=== PATIENT | male | born 1990 | race Caucasian/White ===

== ENCOUNTER → 2016-12-13 | Outpatient (CLI) | payer OTHER ==
--- NOTE | 2016-12-13 14:31 | US ---
EXAM DESCRIPTION: Soft Tissue,Head/Neck CLINICAL HISTORY: 26 years, Male, [employer] COMPARISON: None. FINDINGS: Two areas of palpable concern are noted by the patient on the right side of the neck posteriorly. There are two similar-appearing subcutaneous areas of circumscribed uniform fatty echogenicity consistent with lipomas. These measure 1.2 x 1.5 x 0.7 cm in size and 1.3 x 1.0 x 0.5 cm in size. IMPRESSION: 1. The palpable areas in question are small benign-appearing lipomas Electronically signed by: Iglesia Boggs MD 12/13/2016 2:31 PM CDT
== END | disposition home or self-care (01) ==
LOC: US 10:22
PROVIDERS: ATTEND Nurse Practitioner Family
DX: D17.0 Benign lipomatous neoplasm of skin and subcutaneous tissue of head, face and neck (principal)

== ENCOUNTER → 2018-05-26 | Outpatient (CLI) | payer BC, OTHER ==
--- NOTE | 2018-05-29 08:12 | MRI ---
MRI right ankle without contrast INDICATION: Ankle pain swelling injury 6 days ago TECHNIQUE: Noncontrast MR imaging right ankle FINDINGS: There is tendinosis with thickening of the distal posterior tibialis tendon. No complete rupture or retraction. Mild tendinopathy of the peroneal tendons. Ill-defined diffuse tear of the anterior talofibular ligament. Possible ossification from previous injury. No widening of the syndesmosis. The calcaneofibular ligament appears continuous. There is edema surrounding the anterior talofibular ligament indicating acute tear. Achilles and plantar aponeurosis are intact. Moderate ankle effusion. No acute fracture or osteochondral lesion of the talar dome. Deep deltoid is intact. There is interstitial fissuring of the peroneus longus series 901 image 10. Mild contusion lateral talus. IMPRESSION: Acute tear anterior talofibular ligament high-grade with active edema Contusion lateral talus Moderate ankle effusion Tendinosis of the peroneal tendons and distal posterior tibialis without rupture or retraction Mild interstitial fissuring peroneus longus without complete split Electronically signed by: Junior Gay MD 05/29/2018 8:11 AM [facility]
== END ==
LOC: MRI 08:46
PROVIDERS: ATTEND Internal Medicine
DX: S93.491A Sprain of other ligament of right ankle, initial encounter (principal); M25.471 Effusion, right ankle; M77.51 Other enthesopathy of right foot and ankle